=== PATIENT | male | born 1945 | race Caucasian/White ===

== ENCOUNTER 2019-01-16 13:52 | Inpatient (IN) | payer MEDICARE, OTHER ==
[~2019-01-16] VITALS: Ht 180.3 cm; Wt 79.4 kg
[~2019-01-16 13:52] MED LIST: [UNRECOGNIZED DRUG - OTHER]; dilantin
[2019-01-16] MEDS ORDERED: NS(*) 0.9% 500 ML BAG 500 ML IV ONE (14:35)
[2019-01-16 14:38] LABS: PLATELET COUNT, AUTOMATED 188 K/uL (150-450)
--- NOTE | 2019-01-16 14:40 | RADIOLOGY IMAGING REPORT ---
FACILITY: [facility] PATIENT NAME: Jostin Ordoñez : 1945 MR: [id number] V: [id number] EXAM DATE: ORDERING PHYSICIAN: LILY MARS TECHNOLOGIST: Location: [facility] Patient: Jostin Ordoñez : 1945 Visit/Account:[id number] Date of Sevice: 01/16/2019 EXAMINATION: CT head without IV contrast HISTORY: Stroke alert. Patient has chronic left-sided weakness, but left-sided weakness is worse tod ay. History of aneurysm. COMPARISON: CT head from 04/29/2015. TECHNIQUE: Contiguous axial images were obtained from the skull base to the vertex without intraven ous contrast. Sagittal and coronal reformatted images are also submitted. One of the following dose optimization techniques was utilized in the performance of this exam: Autom ated exposure control; adjustment of the mA and/or kV according to the patient's size; or use of an i terative reconstruction technique. Specific details can be referenced in the facility's radiology C T exam operational policy. FINDINGS: Brain volume: Mild to moderate generalized atrophy with associated concordant prominence of the vent ricular system. Ventricles: Normal. Acute ischemic changes: None. Hemorrhage: No acute intracranial hemorrhage. Masses/edema: None. Carlos-white: There are patchy areas of encephalomalacia and gliosis with cortical thinning in the bila teral frontoparietal regions at the vertex, the right inferior frontal and temporal lobes, the left i nferior frontal lobe, and the right occipital lobe. There are chronic lacunar infarcts in the bilater al basal ganglia. White matter: Normal. Vessels: Mild atherosclerotic calcifications of the carotid siphons. There are aneurysm clips in the region of the anterior communicating artery, with a round area of increased density on the right lois e of the clips, possibly glue, unchanged. Extra-axial: Negative. Calvarium/scalp: Right pterional craniotomy. Skull base/visualized face: Negative. Visualized sinuses/orbits: 1 cm mucous retention cyst in the left maxillary sinus. Mild nasal septal deviation to the right at the nasal aperture, and to the left in the anterior nasal cavity. Mild deana rowing of the right nasal aperture. IMPRESSION: 1. No acute hemorrhage or intracranial mass lesion. No CT evidence of acute infarct. 2. Previous anterior communicating artery aneurysm clipping, unchanged. 3. Patchy areas of encephalomalacia bilaterally, right greater than left, likely due to previous infa rcts and/or trauma, are unchanged. These findings were discussed with LILY MARS at 01/16/2019 2:31 PM. Report Dictated By: Ceci Castellon MD at 01/16/2019 2:26 PM Report E-Signed By: Ceci Castellon MD at 01/16/2019 2:35 PM WSN:[id number]
--- NOTE | 2019-01-16 14:42 | ER Report ---
History and Physical Time Seen By MD: 14:13 Hx. of Stated Complaint: WEAKNESS, HPI/ROS CHIEF COMPLAINT: Weakness HISTORY OF PRESENT ILLNESS: 73-year-old male patient presents to emergency room with his son and with complaints of weakness. Patient was last seen normal at 10:00 last night. They state this morning that he had difficulty getting out of bed. He states that he had difficult time walking. They state that he would often leave his left foot behind which is abnormal for him. They deny any fevers, chills, nausea, vomiting or diarrhea. He states that he does have a history of a brain bleed, which resulted in weakness to the left side of his body. They state they feel that is worse today. REVIEW OF SYSTEMS: Respiratory: No cough, no dyspnea. Cardiovascular: No chest pain, no palpitations. Gastrointestinal: No vomiting, no abdominal pain. Musculoskeletal: As noted above Allergies: Coded Allergies: No Known Drug Allergies (Unverified , 01/16/19) Home Meds Reported Medications Pramipexole Di-Hcl (PRAMIPEXOLE DIHYDROCHLORIDE) 0.5 Mg Tablet, 0.25 MG PO TID 01/16/19 Phenytoin Sodium Extended (DILANTIN) 100 Mg Capsule, 100 MG PO QID, CAPSULE 01/16/19 Discontinued Reported Medications [med for shaking] No Conflict Check 04/29/15 [dilantin] No Conflict Check 04/29/15 Past Medical/Surgical History Patient has a past medical history of an intracranial hemorrhage. Patient has surgical history of [place] brain. Reviewed Nurses Notes: Yes Hx Substance Use Disorder: No Hx Alcohol Use: No Constitutional Vital Sign - Last 24 Hours 01/16/19 01/16/19 01/16/19 01/16/19 14:00 14:08 14:11 14:15 Temp 98.2 Pulse ??? 88 Resp 24 B/P (MAP) 90/56 (67) 90/56 93/54 (67) Pulse Ox 84 O2 Delivery Room Air 01/16/19 01/16/19 01/16/19 01/16/19 14:30 14:45 15:00 15:15 Pulse 84 85 Resp 24 22 B/P (MAP) 112/53 (72) 107/59 (75) 118/61 (80) 116/66 (83) Pulse Ox 94 94 401/16/19 01/16/19 01/16/19 15:30 15:45 16:00 16:15 Pulse 89 85 Resp 20 21 B/P (MAP) 94/59 (71) 118/66 (83) 109/63 (78) 124/67 (86) Pulse Ox 90 94 01/16/19 01/16/19 01/16/19 01/16/19 16:30 16:45 17:00 17:15 Pulse 82 83 Resp 25 18 B/P (MAP) 105/57 (73) 121/72 (88) 118/68 (85) 112/73 (86) Pulse Ox 95 94 01/16/19 17:30 Pulse 81 Resp 17 B/P (MAP) 111/68 (82) Pulse Ox 95 Physical Exam General Appearance: The patient is alert, has no immediate need for airway protection and no current signs of toxicity. Eyes: Pupils equal and round no injection. Respiratory: Chest is non tender, lungs are clear to auscultation. Cardiac: regular rate and rhythm Gastrointestinal: Abdomen is soft and non tender, no masses, bowel sounds normal. Musculoskeletal: Neck: Neck is supple and non tender. Extremities have full range of motion and are non tender. Patient does have noticeable weakness to the left side, is able to move extremities purposefully. Difficult to ascertain whether acute or chronic. Skin: No rashes or lesions. DIFFERENTIAL DIAGNOSIS: After history and physical exam differential diagnosis was considered for weakness, infection, stroke, MS, intracranial hemorrhage. Medical Decision Making Data Points Result Diagram: 01/16/19 1423 01/16/19 1423 Laboratory Hematology Test 01/16/19 14:23 Red Blood Count 4.12 M/uL (4.00-5.60) Mean Corpuscular Volume 96.1 fL (80.0-96.0) Mean Corpuscular Hemoglobin 32.4 pg (26.0-33.0) Mean Corpuscular Hemoglobin Concent 33.7 g/dL (32.0-36.0) Red Cell Distribution Width 14.3 % (11.5-14.5) Mean Platelet Volume 8.7 fL (7.2-11.1) Neutrophils (%) (Auto) 85.4 % (39.4-72.5) Lymphocytes (%) (Auto) 4.5 % (17.6-49.6) Monocytes (%) (Auto) 9.9 % (4.1-12.4) Eosinophils (%) (Auto) 0.0 % (0.4-6.7) Basophils (%) (Auto) 0.2 % (0.3-1.4) Nucleated RBC Relative Count (auto) 0.0 /100WBC Neutrophils # (Auto) 7.3 K/uL (2.0-7.4) Lymphocytes # (Auto) 0.4 K/uL (1.3-3.6) Monocytes # (Auto) 0.9 K/uL (0.3-1.0) Eosinophils # (Auto) 0.0 K/uL (0.0-0.5) Basophils # (Auto) 0.0 K/uL (0.0-0.1) Nucleated RBC Absolute Count (auto) 0.00 K/uL Prothrombin Time 14.1 seconds (12.0-14.4) Prothromb Time International Ratio 1.08 Activated Partial Thromboplast Time 26 seconds (23-35) Sodium Level 142 mmol/L (137-145) Potassium Level 3.8 mmol/L (3.5-5.0) Chloride Level 105 mmol/L (98-107) Carbon Dioxide Level 26 mmol/L (22-30) Blood Urea Nitrogen 34 mg/dl (9-21) Creatinine 2.20 mg/dl (0.66-1.25) Glomerular Filtration Rate Calc 29.5 Random Glucose 123 mg/dl (75-110) Calcium Level 9.3 mg/dl (8.4-10.2) Total Bilirubin 0.4 mg/dl (0.2-1.3) Aspartate Amino Transf (AST/SGOT) 28 U/L (0-35) Alanine Aminotransferase (ALT/SGPT) 26 U/L (0-56) Alkaline Phosphatase 75 U/L (0-126) Troponin I < 0.012 ng/ml Total Protein 7.3 g/dl (6.3-8.2) Albumin 4.2 g/dl (3.5-5.0) Chemistry Test 01/16/19 14:23 White Blood Count 8.6 k/uL (4.5-11.0) Red Blood Count 4.12 M/uL (4.00-5.60) Hemoglobin 13.3 g/dL (14.0-18.0) Hematocrit 39.6 % (42.0-52.0) Mean Corpuscular Volume 96.1 fL (80.0-96.0) Mean Corpuscular Hemoglobin 32.4 pg (26.0-33.0) Mean Corpuscular Hemoglobin Concent 33.7 g/dL (32.0-36.0) Red Cell Distribution Width 14.3 % (11.5-14.5) Platelet Count 188 K/uL (150-450) Mean Platelet Volume 8.7 fL (7.2-11.1) Neutrophils (%) (Auto) 85.4 % (39.4-72.5) Lymphocytes (%) (Auto) 4.5 % (17.6-49.6) Monocytes (%) (Auto) 9.9 % (4.1-12.4) Eosinophils (%) (Auto) 0.0 % (0.4-6.7) Basophils (%) (Auto) 0.2 % (0.3-1.4) Nucleated RBC Relative Count (auto) 0.0 /100WBC Neutrophils # (Auto) 7.3 K/uL (2.0-7.4) Lymphocytes # (Auto) 0.4 K/uL (1.3-3.6) Monocytes # (Auto) 0.9 K/uL (0.3-1.0) Eosinophils # (Auto) 0.0 K/uL (0.0-0.5) Basophils # (Auto) 0.0 K/uL (0.0-0.1) Nucleated RBC Absolute Count (auto) 0.00 K/uL Prothrombin Time 14.1 seconds (12.0-14.4) Prothromb Time International Ratio 1.08 Activated Partial Thromboplast Time 26 seconds (23-35) Glomerular Filtration Rate Calc 29.5 Calcium Level 9.3 mg/dl (8.4-10.2) Total Bilirubin 0.4 mg/dl (0.2-1.3) Aspartate Amino Transf (AST/SGOT) 28 U/L (0-35) Alanine Aminotransferase (ALT/SGPT) 26 U/L (0-56) Alkaline Phosphatase 75 U/L (0-126) Troponin I < 0.012 ng/ml Total Protein 7.3 g/dl (6.3-8.2) Albumin 4.2 g/dl (3.5-5.0) Coagulation Test 01/16/19 14:23 Prothrombin Time 14.1 seconds Prothromb Time International Ratio 1.08 Activated Partial Thromboplast Time 26 seconds EKG/Imaging Imaging Exam type: CHEST SINGLE AP History: weakness Comparison: None. Findings: There is mild crowding of the bronchovascular markings in the lung bases from an limited inspiration. No focal infiltrates are identified. There is no evidence of overt pulmonary edema, pneumothorax or pneumomediastinum. The cardiac silhouette is normal in size. The trachea is in midline. IMPRESSION: 1. Mild crowding the bronchovascular markings the lung bases from a limited inspiratory effort Report Dictated By: Jessica Rosales MD at 01/16/2019 2:55 PM Report E-Signed By: Jessica Rosales MD at 01/16/2019 2:56 PM EXAMINATION: CT head without IV contrast HISTORY: Stroke alert. Patient has chronic left-sided weakness, but left-sided weakness is worse today. History of aneurysm. COMPARISON: CT head from 04/29/2015. TECHNIQUE: Contiguous axial images were obtained from the skull base to the vertex without intravenous contrast. Sagittal and coronal reformatted images are also submitted. One of the following dose optimization techniques was utilized in the performance of this exam: Automated exposure control; adjustment of the mA and/or kV according to the patient's size; or use of an iterative reconstruction technique. Specific details can be referenced in the facility's radiology CT exam operational policy. FINDINGS: Brain volume: Mild to moderate generalized atrophy with associated concordant prominence of the ventricular system. Ventricles: Normal. Acute ischemic changes: None. Hemorrhage: No acute intracranial hemorrhage. Masses/edema: None. Carlos-white: There are patchy areas of encephalomalacia and gliosis with cortical thinning in the bilateral frontoparietal regions at the vertex, the right inferior frontal and temporal lobes, the left inferior frontal lobe, and the right occipital lobe. There are chronic lacunar infarcts in the bilateral basal ganglia. White matter: Normal. Vessels: Mild atherosclerotic calcifications of the carotid siphons. There are aneurysm clips in the region of the anterior communicating artery, with a round area of increased density on the right side of the clips, possibly glue, unchanged. Extra-axial: Negative. Calvarium/scalp: Right pterional craniotomy. Skull base/visualized face: Negative. Visualized sinuses/orbits: 1 cm mucous retention cyst in the left maxillary sinus. Mild nasal septal deviation to the right at the nasal aperture, and to the left in the anterior nasal cavity. Mild narrowing of the right nasal aperture. IMPRESSION: 1. No acute hemorrhage or intracranial mass lesion. No CT evidence of acute infarct. 2. Previous anterior communicating artery aneurysm clipping, unchanged. 3. Patchy areas of encephalomalacia bilaterally, right greater than left, likely due to previous infarcts and/or trauma, are unchanged. These findings were discussed with LILY MARS at 01/16/2019 2:31 PM. Report Dictated By: Ceci Castellon MD at 01/16/2019 2:26 PM Report E-Signed By: Ceci Castellon MD at 01/16/2019 2:35 PM ED Course/Re-evaluation ED Course Patient was admitted to an exam room, history and physical were obtained. Differential diagnoses were considered. On examination lungs are clear, heart is regular, abdomen soft nontender. Patient does have an obvious weakness to the left upper and lower extremities. That is according to the family normal as he does have a 40 year history of a intracranial hemorrhage. CT scan of the head was done which showed no acute findings. Considered doing a CT scan with con trast but patient had a elevated creatinine and low GFR. The CT scan was canceled, and MR was ordered. However due to not knowing whether the clips were MRI able we opted to cancel the MRI. [facility] [place] However I got notes and no labs. I discussed admission with Dr. Wynn who agreed to accept the patient for admission with diagnosis of acute renal failure. Patient was able to lift the left leg off the bed at that time which family considered to be an improvement. Is my belief that this is likely related to acute renal failure. I discussed admission with the patient and his family may verbalized understanding and agreement with plan. Decision to Disposition Date: Jan 16, 2019 Decision to Disposition Time: 17:24 Depart Departure Latest Vital Signs Vital Signs Date Time Temp Pulse Resp B/P (MAP) Pulse Ox O2 Delivery O2 Flow Rate FiO2 01/16/19 17:30 81 17 111/68 (82) 95 01/16/19 14:11 98.2 Room Air Impression: Primary Impression: Acute renal failure Condition: Condition Unchanged Disposition: Admitted from ER Problem Qualifiers Primary Impression: Acute renal failure Acute renal failure type: unspecified Qualified Codes: N17.9 - Acute kidney failure, unspecified LILY MARS Jan 16, 2019 14:42
[2019-01-16 14:43] LABS: INR 1.08
--- NOTE | 2019-01-16 14:54 | EKG ---
FAC[place] [facility] [place]IENT NAME: JAN RUIZ : [id number] MR: [id number] V: [id number] EXAM DATE: ORDERING PHYSICIAN: LILY MARS TECHNOLOGIST: ZACHARY Colón Reason : NEURO Blood Pressure : / mmHG Vent. Rate : 083 BPM Atrial Rate : 083 BPM P-R Int : 158 ms QRS Dur : 106 ms QT Int : 394 ms P-R-T Axes : 063 084 061 degrees QTc Int : 462 ms Normal sinus rhythm Normal ECG No previous ECGs available Confirmed by Giovani Linton ([id number]) on 01/16/2019 10:08:19 PM Referred By: OTILIA Confirmed By:Giovani Colunga
--- NOTE | 2019-01-16 15:00 | RADIOLOGY IMAGING REPORT ---
[facility] PATIENT NAME: Jostin Ordoñez : 1945 MR: [id number] V: [id number] EXAM DATE: ORDERING PHYSICIAN: LILY MARS TECHNOLOGIST: Location: [facility] - [place], [place] Patient: Jostin Ordoñez : 1945 Visit/Account:[id number] Date of Sevice: 01/16/2019 Exam type: CHEST SINGLE AP History: weakness Comparison: None. Findings: There is mild crowding of the bronchovascular markings in the lung bases from an limited inspiration. No focal infiltrates are identified. There is no evidence of overt pulmonary edema, pneumothorax o r pneumomediastinum. The cardiac silhouette is normal in size. The trachea is in midline. IMPRESSION: 1. Mild crowding the bronchovascular markings the lung bases from a limited inspiratory effort Report Dictated By: Jessica Rosales MD at 01/16/2019 2:55 PM Report E-Signed By: Jessica Rosales MD at 01/16/2019 2:56 PM WSN:[email or web address]
[2019-01-16] MEDS ORDERED: NS(*) 0.9% 1000 ML BAG 1,000 ML IV ONE (15:55)
[2019-01-16 18:24] VITALS: BP 106/61
[2019-01-16] MEDS ORDERED: NS(*) 0.9% 1000 ML BAG 1,000 ML IV PRN (18:32)
[2019-01-16] MEDS ORDERED: FLUSH 10 ML SYR IVP PRN (18:35)
[2019-01-16] MEDS ORDERED: ACETAMINOPHEN 325 MG TAB PO PRN (18:35)
[2019-01-16] MEDS ORDERED: PHEN100C82 PO (18:49)
--- NOTE | 2019-01-16 19:49 | History & Physical ---
History of Present Illness Chief Complaint weakness History of Present Illness 73M presented with concern of increased weakness. PMHx significant for CVA w L sided deficits. Family were concerned because he began having harder time ambulating today. Seemed to have increased weakness. CT negative for acute process, clips present at site of ruptured aneurysm. Cr noted 2.2 with unknonwn baseline, appears dehydrated on PE. Unable to get records with regard to clip compositison or [facility]. Weakness improved with IV fluids. Admitted for further hydration and monitoring. History Other Past Medical Hx as per HPI Home Meds Reported Medications Phenytoin Sodium Extended (DILANTIN) 100 Mg Capsule, 200 MG PO BID, CAPSULE 01/16/19 [med for shaking] No Conflict Check 04/29/15 Discontinued Reported Medications [dilantin] No Conflict Check 04/29/15 Allergies: Coded Allergies: No Known Drug Allergies (Unverified , 01/16/19) Hx Smoking: No Exposure to Second Hand Smoke?: No Caffeine Intake: Coffee Caffeine/Cups Per Day: 5-6/day Hx Alcohol Use: Yes Alcohol Used: Beer Hx Substance Use Disorder: No Review of Systems Neurological: No Weakness, No Slurred Speech Eyes: No Vision Change Cardiovascular: No Chest Pain Respiratory: No Shortness of Breath Exam Vital Signs Vital Signs Date Time Temp Pulse Resp B/P (MAP) Pulse Ox O2 Delivery O2 Flow Rate FiO2 01/16/19 18:24 97.7 78 18 106/61 (76) 98 Nasal Cannula 4.0 General Appearance: Alert, Awake, No Acute Distress, Afebrile Neuro: No Gross deficits (no acute, chronic L side nearing baseline) ENT: Other (dry mucous membranes) Cardiovascular: Normal Rhythm & Peripheral Pulses Respiratory: No Respiratory Distress GI: Abd Soft and Non-Tender Medical Decision Making Data Points Result Diagram: 01/16/19 1423 01/16/19 1423 Assessment and Plan Problems: (1) Acute renal failure Status: Acute Assessment & Plan: Possible some underlying CKD. Will get PVR, renal US, UA, Ur Cr, Ur Na. Continue hydration appears to be prerenal based on exam. (2) Dehydration Assessment & Plan: IV fluids started, will continue. (3) Weakness Assessment & Plan: Resolving with IV hydration. Likely due to dehydration, no focal neuro deficits other than chronic L side. (4) History of CVA (cerebrovascular accident) Status: Chronic Assessment & Plan: L sided weakness due to aneurysm rupture over 30 years ago. Clips present unlikely given age to be MRI compatible. Venous Thromboembolism Antithrombotics Is Pt On Any Antithrombotics?: Yes Exam Sepsis Risk: No Definite Risk Problem Qualifiers (1) Acute renal failure: Acute renal failure type: unspecified Qualified Codes: N17.9 - Acute kidney failure, unspecified SHAMEKA HINOJOSA DO Jan 16, 2019 19:49
[2019-01-16] MEDS ORDERED: PRAM0.5T23 PO (20:55)
[2019-01-16] MEDS: PRAMIPEXOLE DIHYDROCHL 0.25 MG PO SCH (23:53)
[2019-01-16] MEDS: PHENYTOIN ER 100 MG CAPER PO SCH (23:53)
[2019-01-16 23:56] VITALS: BP 114/61
[2019-01-17] VITALS (7 sets, daily range): BP systolic 97–124; BP diastolic 57–81
[2019-01-17 06:16] LABS: PLATELET COUNT, AUTOMATED 133 K/uL (150-450)
--- NOTE | 2019-01-17 08:43 | Hospitalist Progress Note ---
Subjective Progress Notes Subjective This patient was admitted for weakness. He had no acute events overnight. Patient Complains of: Cardiovascular: No: Chest Pain Respiratory: No: Shortness of Breath Physical Exam Vital Signs Date Time Temp Pulse Resp B/P (MAP) Pulse Ox O2 Delivery O2 Flow Rate FiO2 01/17/19 07:08 97.4 61 20 113/68 (83) 94 Nasal Cannula 01/17/19 03:36 3.0 Intake and Output 01/17/19 07:00 Intake Total 800 ml Output Total 375 ml Balance 425 ml Intake IV Total 800 ml Output Urine Total 375 ml Bladder Scan Volume Amount 201-300 ml # Voids 2 Cardiovascular: Regular Rate and Rhythm Respiratory: Clear to Auscultation Result Diagram: 01/17/19 0556 01/17/19 0556 Assessment and Plan Problems: (1) Acute renal failure Status: Acute Assessment & Plan: He did have an elevated creatinine on admission. His levels have been improving with IV fluids. (2) Dehydration Assessment & Plan: Resolved. (3) Weakness Assessment & Plan: Resolved with IV fluids. A therapy evaluation is pending. (4) History of CVA (cerebrovascular accident) Status: Chronic Assessment & Plan: He does have residual left sided weakness from a previous stroke. He also has clips from an aneurysm 30+ years ago. (5) Hematuria Assessment & Plan: He has developed hematuria after traumatic self removal of a urinary catheter. We will follow this through the day and consult urology if needed. Exam Sepsis Risk: No Definite Risk Problem Qualifiers (1) Acute renal failure: Acute renal failure type: unspecified Qualified Codes: N17.9 - Acute kidney failure, unspecified ISABELL PINEDO DO Jan 17, 2019 08:43
[2019-01-17] MEDS ORDERED: ENOXAPARIN 30 MG/0.3 ML SYR SC SCH (09:00)
[2019-01-17] MEDS: PHENYTOIN ER 100 MG CAPER PO SCH ×4 (09:35→21:46)
[2019-01-17] MEDS: PRAMIPEXOLE DIHYDROCHL 0.25 MG PO SCH ×3 (09:35→21:46)
--- NOTE | 2019-01-17 10:55 | Medical Nutrition Therapy ---
Nutrition Anthropometrics Height (Inches): 71.00 Height (Calculated Centimeters: 180.235774 Weight (Pounds): 175 Weight (Calculated Kilograms): 79.435 BMI: 24.4 Ander Nutrition Score: Adequate Ander Nutrition Risk Score: 18 Dietary Referral Nutrition Risk Factors: Nutrition Risk Comment: Nutritional Diagnosis Nutritional Risk Acuity 1: Acute/ES Renal Nutritional Acuity: 1-High Nutrition Diagnosis: Decreased Nutrient Needs Nutrition Etiology: Physiological Causes Nutrition Problem/Etiology/Sym: decreased protein, na, phos, K+ R/t Dx RF AEB BUN 26. Energy Requirement: 2030 (MSJ) Protein Requirement: 63 (.8gm/kg AW) Fluid Requirement: 1975 (25ml/kg) Diet Type: Diet as Tolerated MANOLO/REG Nutrition Intervention: Cont diet as ordered, Encourage intake Nutrition Monitoring & Eval Nutrition Goals: Eat 75-100% Meal RD Patient Assessment Time: [address] Assessment Type: RD Assessment Patient Nutrition Acuity: 1-High Follow Up Date: Jan 20, 2019 Nutritional Comment: 01/17 Pt admitted for ARF. BUN cont elevated at 26 but creatinine is now WNR at 1.1. Pt is on regular diet and eating 100% of meals. Hgb 12.1, Hct 36, alb 4.2. Will cont to monito and encourage intake. MOODY KOEHLER Jan 17, 2019 10:55
--- NOTE | 2019-01-17 11:23 | NUR ---
Occupational Therapy Impression Initial PT/OT evaluation completed. Independent bed mobility in/out. CGA ambulation with handheld assist. Pt declined toileting. SpO2 WNL on 1L. Pt near baseline for functional tasks. No further inpatient OT sessions planned at this time. Recommend HomeHealth services to optimize (I) with ADLs and promote fall prevention strategies within the home. Occupational Therapy Goals Patient's Goal
--- NOTE | 2019-01-17 12:03 | NUR ---
Physical Therapy Impression PT eval complete. Pt ambulates with L enio-paretic gait pattern without his AFO (it is unavailable) and L foot drop with R steppage gait pattern. Although unsteady, this is likely his baseline gait pattern and Pt did not have a loss of balance with this PT. Recommend home health PT at [place] to assist with fall prevention at home. Physical Therapy Goals 1. SBA transfers. 2. SBA gait x 50' with cane. Patient's Goals
--- NOTE | 2019-01-17 13:23 | NUR ---
Physical Therapy Impression TCN reports Pt and his declined home health services at this time. This PT visited Pt and his to encourage re-consideration of home health services. Pt's reports Pt has been "like this since 1976 and they are managing just fine". Pt's reports Pt has received physical therapy in the past and they have told her "he is as good as he is going to get". Educated Pt and Pt's how to obtain home health services if desired in the future. Pt's verbalized understanding. Physical Therapy Goals 1. SBA transfers. 2. SBA gait x 50' with cane. Patient's Goals
--- NOTE | 2019-01-17 15:22 | RADIOLOGY IMAGING REPORT ---
FACILITY: [facility] PATIENT NAME: Jostin Ordoñez : 1945 MR: [id number] V: [id number] EXAM DATE: ORDERING PHYSICIAN: SHAMEKA ORTEGA TECHNOLOGIST: [place] [facility] [place]ostin Ordoñez : 1945 Visit/Account:[id number] Date of Sevice: 01/17/2019 KIDNEYS HISTORY: STIVEN COMPARISON: None. FINDINGS: Kidneys: Right kidney- 1.7 x 4.6 x 5.3 cm with normal parenchymal thickness and echogenicity. No ultrasound e vident renal mass lesion or stone. Left kidney- 11.7 x 5.7 x 4.3 cm with normal parenchymal thickness and echogenicity. No ultrasound e vident renal mass lesion or stone. Uniform and symmetric blood flow in each kidney by Doppler ultrasound. Hydronephrosis: None. Bladder: Morphologically unremarkable. Bilateral ureteric jets visualized. . Abdominal aorta and IVC: There is a 6.5 x 6.5 x 6.7 cm infrarenal aortic aneurysm with large amount m ural thrombus present.. IMPRESSION: Large 6.7 cm infrarenal aortic aneurysm, recommend vascular surgery consultation Normal renal ultrasound Results were discussed with the patient's physician at 01/17/2019 3:17 PM. Report Dictated By: Jhonatan Hanna at 01/17/2019 3:00 PM Report E-Signed By: Jhonatan Hanna at 01/17/2019 3:18 PM WSN:[id number]
[2019-01-17] MEDS ORDERED: PROMETHAZINE 25 MG/ML 1 ML AMP IVP PRN (19:00)
[2019-01-17] MEDS ORDERED: ONDANSETRON 4 MG ODT TABDP SL ONE (19:05)
[2019-01-18 04:03] VITALS: BP 134/79
[2019-01-18 07:21] VITALS: BP 125/80
[2019-01-18] MEDS: PRAMIPEXOLE DIHYDROCHL 0.25 MG PO SCH ×3 (08:25→21:01)
[2019-01-18] MEDS: PHENYTOIN ER 100 MG CAPER PO SCH ×4 (08:25→21:01)
--- NOTE | 2019-01-18 09:44 | Hospitalist Progress Note ---
Subjective Progress Notes Subjective Nursing has noted cough/choking with food/fluids over past 24 hours. Family states this has not been a problem in the past. He was incidentally found on renal ultrasound to have a large AAA. Physical Exam Vital Signs Date Time Temp Pulse Resp B/P (MAP) Pulse Ox O2 Delivery O2 Flow Rate FiO2 01/18/19 08:50 99 Nasal Cannula 2.0 01/18/19 07:21 97.7 78 16 125/80 (95) Intake and Output 01/18/19 07:00 Intake Total 3220 ml Output Total 1575 ml Balance 1645 ml Intake Oral 3220 ml Output Urine Total 1575 ml # Voids 5 # Emeses 1 General Appearance: Alert, Awake Cardiovascular: Regular Rate and Rhythm Respiratory: Clear to Auscultation Chest: No Tenderness GI: Soft and Non-Tender, Other (BS present/no bruit noted) Extremities: Warm, Perfused Psych: Other (oriented to person and place, but only partially to time) Result Diagram: 01/17/19 0556 01/17/19 0556 Assessment and Plan Problems: (1) AAA (abdominal aortic aneurysm) Status: Chronic Assessment & Plan: This is measured to be 6.7cm in diameter and infrarenal in position. Family would like to have this evaluated and potentially treated. He is a [place] patient. Will have social work/transitional care nursing contact the [place] to see how they would prefer to proceed with work up. If the [place] does not wish to have him in their system will discuss with vascular surgery. (2) Acute renal failure Status: Acute Assessment & Plan: Most likely due to decreased intake with subsequent dehydration. He had an elevated creatinine on admission (2.2). This improved with IV fluids - back to normal at 1.1. (3) Dehydration Assessment & Plan: Resolved. (4) Weakness Assessment & Plan: Resolved with IV fluids. PT/OT seeing. (5) History of CVA (cerebrovascular accident) Status: Chronic Assessment & Plan: He does have residual left sided weakness from a previous stroke. He also has clips from an aneurysm 30+ years ago. (6) Hematuria Assessment & Plan: He has developed hematuria after traumatic self removal of a urinary catheter. This appears to have cleared. Exam Sepsis Risk: No Definite Risk Problem Qualifiers (1) Acute renal failure: Acute renal failure type: unspecified Qualified Codes: N17.9 - Acute kidney failure, unspecified VAZQUEZ,MARTEN A MD Jan 18, 2019 09:44
--- NOTE | 2019-01-18 11:51 | RADIOLOGY IMAGING REPORT ---
FACILITY: [facility] - [place] PATIENT NAME: Jostin Ordoñez : 1945 MR: [id number] V: [id number] EXAM DATE: ORDERING PHYSICIAN: LUIZ VAZQUEZ TECHNOLOGIST: [place] [facility] [place]: Jostin Ordoñez : 1945 Visit/Account:[id number] Date of Sevice: 01/18/2019 CHEST SINGLE AP Additional pertinent History: Suspected aspiration COMPARISON STUDIES: 01/16/2019 FINDINGS: Support lines and catheters: Oxygen tubing Lungs and Pleura: The perceived left lower lung opacity seen on the previous examination is not iden tified on this film. No infiltrates or consolidations. Slight blunting left costophrenic angle comp atible with probable pleural thickening. Heart and vasculature: Atherosclerotic calcific changes in the aortic arch. Pilar and Mediastinum: Negative. Bones and Chest wall: Negative. Upper Abdomen: Negative. IMPRESSION: 1. Negative chest for acute cardiopulmonary disease. Actual improved aeration in the left lower les g when compared to the previous study. Report Dictated By: Jnoathon Alcantara MD at 01/18/2019 11:44 AM Report E-Signed By: Jonathon Alcantara MD at 01/18/2019 11:47 AM WSN:[email or web address]
--- NOTE | 2019-01-18 14:16 | NUR ---
Physical Therapy Impression RN reports that pt has large abdominal aortic aneurysm and is no appropriate for mobility intervention at this time apart for necessary functional mobility with nursing staff. Pt may be transferred per RN report, PT will f/u as appropriate. Physical Therapy Goals 1. SBA transfers. 2. SBA gait x 50' with cane. Patient's Goals
[2019-01-18 14:24] VITALS: BP 95/57
--- NOTE | 2019-01-18 14:47 | Medical Nutrition Therapy ---
Nutrition Anthropometrics Height (Inches): 71.00 Height (Calculated Centimeters: 180.994128 Weight (Pounds): 175 Weight (Calculated Kilograms): 79.435 BMI: 24.4 Ander Nutrition Score: Adequate Ander Nutrition Risk Score: 17 Dietary Referral Nutrition Risk Factors: Nutrition Risk Comment: Nutritional Diagnosis Nutritional Risk Acuity 1: Acute/ES Renal Nutritional Risk Acuity 2: Swallowing Problem Nutritional Acuity: 1-High Nutrition Diagnosis: Decreased Nutrient Needs Nutrition Etiology: Physiological Causes Nutrition Problem/Etiology/Sym: decreased protein, na, phos, K+ R/t Dx RF AEB BUN 26. Energy Requirement: 2030 (MSJ) Protein Requirement: 63 (.8gm/kg AW) Fluid Requirement: 1975 (25ml/kg) Diet Type: Diet as Tolerated MANOLO/REG Nutrition Intervention: Cont diet as ordered, Encourage intake Additional Diet Restrictions: No lettuce, no dry breads, cookies, no tough/dry meats Diet Comment To RSA: chopped meats 1/2" Nutrition Monitoring & Eval Nutrition Goals: Eat 75-100% Meal Nutrition Follow-Up: Good Intake RD Patient Assessment Time: [address] Assessment Type: RD Re-Assessment Patient Nutrition Acuity: 1-High Follow Up Date: Jan 21, 2019 Nutritional Comment: 01/17 Pt admitted for ARF. BUN cont elevated at 26 but creatinine is now WNR at 1.1. Pt is on regular diet and eating 100% of meals. Hgb 12.1, Hct 36, alb 4.2. Will cont to monito and encourage intake. DARIEN 01/18 Nursing noted pt choking on foods. Pt evaluated by SPL with diet changed to Dysphagia 3 with no lettuce or dry breads, cookies, meat. Pt eating 100% of meals. Will cont to monitor and encourage intake. MOODY KOEHLER Jan 18, 2019 14:47
[2019-01-18 14:48] VITALS: BP 106/64
[2019-01-18] MEDS ORDERED: INFLUENZA VIRUS VAC 0.5ML SYR IM ONLY ONE (18:35)
[2019-01-18 19:38] VITALS: BP 102/63
[2019-01-18 22:46] VITALS: BP 137/74
[2019-01-19 05:50] VITALS: BP 126/76
[2019-01-19 06:10] LABS: PLATELET COUNT, AUTOMATED 133 K/uL (150-450)
[2019-01-19 06:57] VITALS: BP 132/79
[2019-01-19] MEDS: PHENYTOIN ER 100 MG CAPER PO SCH (09:09)
[2019-01-19] MEDS: PRAMIPEXOLE DIHYDROCHL 0.25 MG PO SCH (09:09)
[2019-01-19 10:30] VITALS: BP 109/63
--- NOTE | 2019-01-19 11:05 | Hospitalist Progress Note ---
Physical Exam Vital Signs Date Time Temp Pulse Resp B/P (MAP) Pulse Ox O2 Delivery O2 Flow Rate FiO2 01/19/19 10:30 97.7 82 16 109/63 (78) 93 Nasal Cannula 1.0 Intake and Output 01/19/19 07:00 Intake Total 2080 ml Output Total 5050 ml Balance -2970 ml Intake Oral 2080 ml Output Urine Total 5050 ml # Voids 13 Result Diagram: 01/19/19 0543 01/19/1943 Assessment and Plan Problems: (1) Failure to thrive syndrome, adult Status: Acute Assessment & Plan: The patient's family notes that the patient has not been eating and drinking as well recently. He has had more difficulty with swallowing at home as well. It is unclear whether or not he has been getting his medications regularly as well. The patient lives with his who is his primary rubber engraver. They are now understanding that this situation is going to n eed to change and would like to pursue terminal superintendent care for the patient as the patient's is no longer able to care for him at home. (2) Acute renal failure Status: Acute Assessment & Plan: The patient presented with acute renal failure most likely due to decreased intake with subsequent dehydration. He had an elevated creatinine on admission (2.2). This normalized with IV fluids. (3) Dehydration Assessment & Plan: Resolved with IV fluids. (4) Dysphagia Assessment & Plan: The patient's family noted he was having trouble with swallowing recently. The patient was evaluated by Speech Language Pathology. They recommended a dysphagia 3 diet with regular/thick liquids and pills w/ thin liquids. (5) Weakness Assessment & Plan: The patient presented with generalized weakness and failure to thrive at home. PT/OT assessed the patient and have been following. (6) AAA (abdominal aortic aneurysm) Status: Chronic Assessment & Plan: An abdominal aortic aneurysm was incidentally identified by renal US. This is measured to be 6.7cm in diameter and infrarenal in position. The patient has been asymptomatic wit this. Dr. Bisi Vazquez spoke with vascular surgery and it was recommended that the patient be evaluated as an outpatient after his acute medical issues have been evaluated since he is asymptomatic. [facility] (7) History of CVA (cerebrovascular accident) Status: Chronic Assessment & Plan: The patient does have residual left sided weakness from a previous stroke. He had clips placed for an aneurysm 30+ years ago after a cerebral hemorrhage (1977). (8) Hematuria Assessment & Plan: He developed hematuria after traumatic self removal of a urinary catheter. This resolved. Time Spent on Plan of Care: < 30 min Exam Sepsis Risk: No Definite Risk Problem Qualifiers (1) Acute renal failure: Acute renal failure type: unspecified Qualified Codes: N17.9 - Acute kidney failure, unspecified (2) AAA (abdominal aortic aneurysm): Presence of rupture: without rupture Qualified Codes: I71.4 - Abdominal aortic aneurysm, without rupture NIKO VAZQUEZ MD Jan 19, 2019 11:05
--- NOTE | 2019-01-19 11:16 | Hospitalist Depart ---
Discharge Summary Reason for Hosp/Final Diag: (1) Failure to thrive syndrome, adult Status: Acute Hospital Course & Plan: The patient's family noted that the patient had not been eating and drinking well recently. He had been noted to have difficulty with swallowing at home as well. It is unclear whether or not he had been getting his medications regularly as well. The patient lives with his who is his primary paper coating supervisor. The family is now understanding that this situation is not working and would like to pursue retirement care for the patient as the patient's is no longer able to care for him at home. (2) Acute renal failure Status: Acute Hospital Course & Plan: The patient presented with acute renal failure most likely due to decreased intake with subsequent dehydration. He had an elevated creatinine on admission (2.2). This normalized with IV fluids. (3) Dehydration Hospital Course & Plan: Resolved with IV fluids. (4) Dysphagia Hospital Course & Plan: The patient's family noted he was having trouble with swallowing recently. The patient was evaluated by Speech Language Pathology. They recommended a dysphagia 3 diet with regular/thick liquids and pills w/ thin liquids. (5) Weakness Hospital Course & Plan: The patient presented with generalized weakness and failure to thrive at home. PT/OT assessed the patient and have been following. (6) AAA (abdominal aortic aneurysm) Status: Chronic Hospital Course & Plan: An abdominal aortic aneurysm was incidentally identified by renal US. This is measured to be 6.7cm in diameter and infrarenal in position. The patient has been asymptomatic wit this. Dr. Luiz Martinez spoke with vascular surgery and it was recommended that the patient be evaluated as an outpatient after his acute medical issues have been evaluated since he is asymptomatic. The [facility]. (7) History of CVA (cerebrovascular accident) Status: Chronic Hospital Course & Plan: The patient does have residual left sided weakness from a previous stroke. He had clips placed for an aneurysm 30+ years ago after a cerebral hemorrhage (1977). (8) Hematuria Hospital Course & Plan: He developed hematuria after traumatic self removal of a urinary catheter. This resolved. Departure Weight (Pounds): 175 Weight (Ounces): 2.0 Result Diagram: 01/19/19 0543 01/19/19 0543 Item Value Date Time Calcium Level 8.5 mg/dl 01/19/19 0543 Total Bilirubin 0.1 mg/dl L 01/19/19 0543 Aspartate Amino Transf (AST/SGOT) 27 U/L 01/19/19 05 Alanine Aminotransferase (ALT/SGPT) 26 U/L 01/19/19 0543 Alkaline Phosphatase 82 U/L 01/19/19 0543 Total Protein 5.8 g/dl L 01/19/19 05 Albumin 3.1 g/dl L 01/19/19 05 Troponin I < 0.012 ng/ml 01/16/19 142 Urine Color Yellow 01/17/19 Urine Clarity Slightly-cloudy 01/17/19 Urine pH 5.0 pH 01/17/19 Urine Specific [place] 1.024 01/17/19 Urine Protein Negative mg/dL 01/17/19 Urine Glucose (UA) Negative mg/dL 01/17/19 Urine Ketones Trace mg/dL 01/17/19 Urine Blood Negative 01/17/19 Urine Nitrite Negative 01/17/19 Urine Bilirubin Negative 01/17/19 Urine Urobilinogen Negative mg/dL 01/17/19 Urine Leukocyte Esterase Negative 01/17/19 Urine RBC 2 /HPF 01/17/19 Urine WBC 3 /HPF 01/17/19 Urine Squamous Epithelial Cells None /LPF 01/17/19 Urine Calcium Oxalate Crystals Few /HPF H 01/17/19 Urine Bacteria Negative /HPF 01/17/19 Urine Hyaline Casts Many /LPF H 01/17/19 Urine Mucus Few /HPF 01/17/19 Urine Random Creatinine 236.9 mg/dl 01/17/19 Urine Random Sodium 140 MEQ/L 01/17/19 0000 Prothrombin Time 14.1 seconds 01/16/19 1423 Prothromb Time International Ratio 1.08 01/16/19 142 Activated Partial Thromboplast Time 26 seconds 01/16/19 1423 None Imaging FACILITY: [facility] PATIENT NAME: Jostin Ruiz : 1945 MR: [id number] V: [id number] EXAM DATE: ORDERING PHYSICIAN: LUIZ MARTINEZ TECHNOLOGIST: [place] [facility] [place] Patient: Jostin Ruiz : 1945 Visit/Account:[id number] Date of Sevice: 01/18/2019 CHEST SINGLE AP Additional pertinent History: Suspected aspiration COMPARISON STUDIES: 01/16/2019 FINDINGS: Support lines and catheters: Oxygen tubing Lungs and Pleura: The perceived left lower lung opacity seen on the previous examination is not identified on this film. No infiltrates or consolidations. Slight blunting left costophrenic angle compatible with probable pleural thickening. Heart and vasculature: Atherosclerotic calcific changes in the aortic arch. Pilar and Mediastinum: Negative. Bones and Chest wall: Negative. Upper Abdomen: Negative. IMPRESSION: 1. Negative chest for acute cardiopulmonary disease. Actual improved aeration in the left lower lung when compared to the previous study. Report Dictated By: Jonathon Alcantara MD at 01/18/2019 11:44 AM Report E-Signed By: Jonathon Alcantara MD at 01/18/2019 11:47 AM WSN:[id number] FACILITY: [facility] PATIENT NAME: Jostin Ruiz : 1945 MR: [id number] V: [id number] EXAM DATE: [id number] ORDERING PHYSICIAN: SHAMEKA COLUNGA TECHNOLOGIST: Location[place] [facility] [place] Patient: Jostin Ruiz : 1945 Visit/Account:[id number] Date of Sevice: 01/17/2019 KIDNEYS HISTORY: STIVEN COMPARISON: None. FINDINGS: Kidneys: Right kidney- 1.7 x 4.6 x 5.3 cm with normal parenchymal thickness and echogenicity. No ultrasound evident renal mass lesion or stone. Left kidney- 11.7 x 5.7 x 4.3 cm with normal parenchymal thickness and echogenicity. No ultrasound evident renal mass lesion or stone. Uniform and symmetric blood flow in each kidney by Doppler ultrasound. Hydronephrosis: None. Bladder: Morphologically unremarkable. Bilateral ureteric jets visualized. . Abdominal aorta and IVC: There is a 6.5 x 6.5 x 6.7 cm infrarenal aortic aneurysm with large amount mural thrombus present.. IMPRESSION: Large 6.7 cm infrarenal aortic aneurysm, recommend vascular surgery consultation Normal renal ultrasound Results were discussed with the patient's physician at 01/17/2019 3:17 PM. Report Dictated By: Jhonatan Hanna at 01/17/2019 3:00 PM Report E-Signed By: Jhonatan Hanna at 01/17/2019 3:18 PM WSN:[id number] FACILITY: [facility] PATIENT NAME: Jostin Ruiz : 1945 MR: [id number] V: [id number] EXAM DATE: ORDERING PHYSICIAN: LILY MARS TECHNOLOGIST: Location: [facility] [place] Patient: Jostin Ruiz : 1945 Visit/Account:[id number] Date of Sevice: 01/16/2019 Exam type: CHEST SINGLE AP History: weakness Comparison: None. Findings: There is mild crowding of the bronchovascular markings in the lung bases from an limited inspiration. No focal infiltrates are identified. There is no evidence of overt pulmonary edema, pneumothorax or pneumomediastinum. The cardiac silhouette is normal in size. The trachea is in midline. IMPRESSION: 1. Mild crowding the bronchovascular markings the lung bases from a limited inspiratory effort Report Dictated By: Jessica Rosales MD at 01/16/2019 2:55 PM Report E-Signed By: Jessica Rosales MD at 01/16/2019 2:56 PM WSN:[id number] FACILITY: [facility] PATIENT NAME: Jostin Ruiz : 1945 MR: [id number] V: [id number] EXAM DATE: ORDERING PHYSICIAN: LILY MARS TECHNOLOGIST: Location: [facility] [place] Patient: Jostin Ruiz : 1945 Visit/Account:[id number] Date of Sevice: 01/16/2019 EXAMINATION: CT head without IV contrast HISTORY: Stroke alert. Patient has chronic left-sided weakness, but left-sided weakness is worse today. History of aneurysm. COMPARISON: CT head from 04/29/2015. TECHNIQUE: Contiguous axial images were obtained from the skull base to the vertex without intravenous contrast. Sagittal and coronal reformatted images are also submitted. One of the following dose optimization techniques was utilized in the performance of this exam: Automated exposure control; adjustment of the mA and/or kV according to the patient's size; or use of an iterative reconstruc tion technique. Specific details can be referenced in the facility's radiology CT exam operational policy. FINDINGS: Brain volume: Mild to moderate generalized atrophy with associated concordant prominence of the ventricular system. Ventricles: Normal. Acute ischemic changes: None. Hemorrhage: No acute intracranial hemorrhage. Masses/edema: None. Carlos-white: There are patchy areas of encephalomalacia and gliosis with cortical thinning in the bilateral frontoparietal regions at the vertex, the right inferior frontal and temporal lobes, the left inferior frontal lobe, and the right occipital lobe. There are chronic lacunar infarcts in the bilateral basal ganglia. White matter: Normal. Vessels: Mild atherosclerotic calcifications of the carotid siphons. There are aneurysm clips in the region of the anterior communicating artery, with a round area of increased density on the right side of the clips, possibly glue, unchanged. Extra-axial: Negative. Calvarium/scalp: Right pterional craniotomy. Skull base/visualized face: Negative. Visualized sinuses/orbits: 1 cm mucous retention cyst in the left maxillary sinus. Mild nasal septal deviation to the right at the nasal aperture, and to the left in the anterior nasal cavity. Mild narrowing of the right nasal aperture. IMPRESSION: 1. No acute hemorrhage or intracranial mass lesion. No CT evidence of acute infarct. 2. Previous anterior communicating artery aneurysm clipping, unchanged. 3. Patchy areas of encephalomalacia bilaterally, right greater than left, likely due to previous infarcts and/or trauma, are unchanged. These findings were discussed with LILY MARS at 01/16/2019 2:31 PM. Report Dictated By: Ceci Castellon MD at 01/16/2019 2:26 PM Report E-Signed By: Ceci Castellon MD at 01/16/2019 2:35 PM WSN:[id number] EKG FACILITY: [facility] PATIENT NAME: JOSTIN RUIZ : [id number] MR: [id number] V: [id number] EXAM DATE: ORDERING PHYSICIAN: LILY MARS TECHNOLOGIST: ZACHARY Colón Reason : NEURO Blood Pressure : / mmHG Vent. Rate : 083 BPM Atrial Rate : 083 BPM P-R Int : 158 ms QRS Dur : 106 ms QT Int : 394 ms P-R-T Axes : 063 084 061 degrees QTc Int : 462 ms Normal sinus rhythm Normal ECG No previous ECGs available Confirmed by Shameka Linton ([id number]) on 01/16/2019 10:08:19 PM Referred By: OTILIA Confirmed By:Shameka Colunga [id number] T: VALENATH/ Condition: Improved Discharge: Other Facility PT/OT Follow Up For: PT For Strengthening, OT For ADL's Discharge Code Status: DNR, DNI Time Spent: < 30 min Discharge Instructions Home Meds Reported Medications Pramipexole Di-Hcl (PRAMIPEXOLE DIHYDROCHLORIDE) 0.5 Mg Tablet, 0.25 MG PO TID 01/16/19 Phenytoin Sodium Extended (DILANTIN) 100 Mg Capsule, 100 MG PO QID, CAPSULE 01/16/19 Discontinued Reported Medications [med for shaking] No Conflict Check 04/29/15 [dilantin] No Conflict Check 04/29/15 Activity: As Tolerated, With Walker Special Instructions: 1. Dysphagia 3 diet (see above) 2. The patient did not have a BM during stay at [facility] and will need to be on a constipation protocol. Venous Thromboembolism Antithrombotics Is Pt On Any Antithrombotics?: Yes Problem Qualifiers (1) Acute renal failure: Acute renal failure type: unspecified Qualified Codes: N17.9 - Acute kidney failure, unspecified (2) AAA (abdominal aortic aneurysm): Presence of rupture: without rupture Qualified Codes: I71.4 - Abdominal aortic aneurysm, without rupture NIKO MARTINEZ MD Jan 19, 2019 11:16
--- NOTE | 2019-01-19 12:27 | SWALLOW EVALUATION ---
SPEECH THERAPY ASSESSMENT Bedside dysphagia evaluation Physician: Hospitalist Clinician: Althea Rojas MS, CCC-[employer] Type of Assessment: Clinical Dysphagia Evaluation Patient: Jostin Ordoñez : 45, 73yo Evaluation Date: 01-18-19 BACKGROUND The patient is a 73 year old male admitted to [facility] with after presenting to the ER with his son and with general weakness. Nursing noted dysphagia symptoms including coughing/choking with foods on 01-17-19. The patient and family deny any dysphagia symptoms in the recent past. In the early the patient experienced a Rside stroke resulting in significant oral and pharyngeal dysphagia however these symptoms resolved with rehabilitation following the CVA. He has no PMHx of pneumonia. An ST consult was requested to assess swallow safety. Primary Medical Diagnosis: generalized weakness PMHx: dementia, AAA, CVA in with continued R-side weakness, hx of dysphagia Pain Scale (0-10): 0 LOC / Participation: Alert and cooperative Follows instructions: two-level Orientation: oriented to self, caregivers/family members, place, time Functional Communication Deficits impact swallow function/safety, or response to therapy: Yes. Family reports mild short term memory loss persisting post CVA. DYSPHAGIA Sialorrhea: No Xerostomia: No Hygiene: WFL Supplemental Oxygen Use: Yes. 2 LPM via NC. COPD Dx: No. Pain with Swallow: Denies. Repetitive Saliva Swallow (RSS): 3 in 30 seconds. WNL Pt seen at the bedside for clinical swallowing assessment. The pt was alert and participatory, oriented to self and caregivers, place and time. Daughter and were present to supplement case history and provide information re: PLOF. Daughter reports patient dentures do not fit well and the patient does not put them in properly. Daughter reports spouse is not consistent with assisting meds management and patient misses medications. Oromotor Exam: Pt wears upper and lower dentures. Lower dentures are loose fitting. A small amount food had collected under lower dentures. ST cleaned upper and lower dentures. There is mild Lside facial droop most noticeable around the mouth from past CVA. Oromotor exam was otherwise unremarkable. Administered PO trials of thin liquids via tsp, cup sip, and straw, pureed solids, mechanically altered and regular solids. Observed with medication administration by RN with water. Overall, the pt presents with mild oropharyngeal dysphagia d/t by poor dentition, incomplete bolus formation, reduced mastication and large bites with limited mastication. Pt also with mild cognitive deficits characterized by decreased short term memory per family report. The pt received ST cues to increase mastication time and reduce bite size. Family reports fast eating and large bites are typical of this patient. Respiratory rate and pulse oximetry remained stable with all trials. No signs of aspiration witnessed SUMMARY Aspiration Risk: Mild. Negative prognostic indicators include oral dysphagia, poor dentition (ill fitting dentures), mild cognitive deficits, respiratory compromise NICHOLAS: Level 6, mild dysphagia. Within functional limits/modified independence. Avoid high risk foods. Speech Therapy Need ST will continue to analyze swallow status and evolve diet recommendations, compensatory strategies, and aspiration precautions as appropriate. ST will also continue to provide patient and staff education re: aspiration precautions and safe swallow strategies to minimize risk for further respiratory compromise. RECOMMENDATIONS 1.Diet: Dysphagia 3 diet (IDDS 6), thin liquids (IDDS 0): no lettuce, chop meets, avoid dry breads/cookies 2. Medications: Whole, with thin liquids 3. Compensatory Techniques: regular oral hygiene, upright positioning during PO intake (up to chair if possible), cues to consume small bites/sips, 4. Supervision with meals/snacks: intermittent POC STG 1. Caregivers will support patient execution of compensatory swallow and aspiration precautions without need for [employer] assistance during participation in mealtime activities. LTG 1. The patient will safely and efficiently tolerate a Dysphagia 3 diet (IDDS 6) and thin liquids with independently using safe swallow strategies and no s/s of aspiration. Prognosis: good, no previously reported history of aspiration pneumonia, supportive family Thank you for this referral. Althea Rojas M.S., [facility]-[employer] Speech Therapist JOSE
== END 2019-01-19 12:08 | DRG 684 ==
LOC: ER 14:43 → INTOOBSV 17:43 → MED 17:43 → OBSVTOIN 01-17
PROVIDERS: ADMIT Internal Medicine; ATTEND Internal Medicine
DX: N17.9 Acute kidney failure, unspecified (principal); R62.7 Adult failure to thrive; I71.4 Abdominal aortic aneurysm, without rupture; E86.0 Dehydration; R53.1 Weakness; R31.9 Hematuria, unspecified; Z68.24 Body mass index [BMI] 24.0-24.9, adult; Z86.73 Personal history of transient ischemic attack (TIA), and cerebral infarction without residual deficits
CPT/HCPCS: 36415; 70450; 71045; 76705; 81001; 82040; 82247; 82310; 82374; 82435; 82565; 82570; 82947; 84075; 84132; 84155; 84295; 84300; 84450; 84460; 84484; 84520; 85025; 85610; 85730; 93005; 96360; 97163; 97165; 99284; G0378; J1650; J2550; J7030; J7040; S0119

== ENCOUNTER → 2019-01-19 | Outpatient (CLI) | payer OTHER ==
[~2019-01-19] MED LIST changes: +PHEN100C82 PO; +PRAM0.5T23 PO
== END ==
LOC: AMB 11:38
PROVIDERS: ATTEND Nurse Practitioner
DX: R53.1 Weakness (principal)
CPT/HCPCS: A0425; A0428